=== PATIENT | female | born 1945 | race Caucasian/White ===

== ENCOUNTER 2020-04-11 06:35 | Inpatient (IN) | payer OTHER ==
[~2020-04-11] VITALS: Ht 167.6 cm; Wt 120.4 kg
[2020-04-11] MEDS ORDERED: SODIUM CHLORIDE 0.9% 1,000 ML IV ONE (08:00)
[2020-04-11 08:27] LABS: Basophils # (auto) 0 10 ^3/uL (0-0.2); Eosinophils # (auto) 0 10 ^3/uL (0-0.8); Monocytes # (auto) 0.5 10 ^3/uL (0-1.3); Neutrophils # (auto) 9.7 10 ^3/uL (1.6-8.6)
[2020-04-11 08:29] LABS: Basophils % (auto) 0.2 % (0.0-2.0); Hematocrit 33.4 % (36.0-46.0); Lymphocytes # (auto) 0.4 10 ^3/uL (0.4-5.4); Lymphocytes % (auto) 3.7 % (10.0-50.0); Mean Corpuscular Hemoglobin 33.8 pg (28.0-32.0); Mean Corpuscular Hgb Conc. 32.8 g/dL (32.0-36.0); Neutrophils % (auto) 91.1 % (37.0-80.0); Nucleated Red Blood Cells % 0.1 %; Platelet Count (auto) 87 10^3/uL (140-450); Red Blood Cells 3.25 10^6/uL (4.0-5.20); Red Cell Distribution Width 17.3 % (11.8-14.3); White Blood Cell 10.7 10^3/uL (4.4-10.8)
[2020-04-11 08:46] LABS: Albumin 2.7 g/dL (3.4-5.0); BUN/Creatinine Ratio 36.8; Calcium 8.6 mg/dL (8.5-10.1); Magnesium 1.3 mg/dL (1.6-2.6); Potassium 3.7 mmol/L (3.5-5.1)
[2020-04-11 08:49] LABS: Bilirubin, Total 2.3 mg/dL (0.2-1.0); Total Protein 5.1 g/dL (6.4-8.2)
[2020-04-11 08:50] LABS: INR 1.41 (0.9-1.15); Partial Thromboplastin Time 31.3 sec (23.0-31.2)
[2020-04-11] MEDS ORDERED: IOHEXOL 350 MG/ML 100ML IJ ONE ×2 (12:42→13:12)
[2020-04-11 14:17] LABS: Urine Bacteria NONE SEEN /hpf (None Seen); Urine Blood 2+ /uL (Negative); Urine Mucus FEW (None Seen); Urine Specific Gravity 1.031 (1.001-1.035); Urine WBC 10 /hpf (0 - 5)
[2020-04-11] MEDS ORDERED: SPIRONOLACTONE 25 MG TAB PO ONE (15:45)
[2020-04-11] MEDS ORDERED: cefTRIAXone 1GM/50ML D5W 50 ML IV ONE (15:45)
[2020-04-11] MEDS ORDERED: FUROSEMIDE 40 MG/4 ML VIAL IV ONE (15:45)
[2020-04-11] MEDS ORDERED: VANCOMYCIN PER PHARMACY 0 MG IV SCH (16:00)
[2020-04-11] MEDS ORDERED: MORPHINE SULF INJ 2 MG/ML SYRINGE 1ML IV PRN (16:00)
[2020-04-11] MEDS ORDERED: ACETAMINOPHEN 500 MG TAB PO PRN (16:00)
[2020-04-11] MEDS ORDERED: NITROGLYCERIN 0.4 MG SL TAB SL PRN (16:00)
[2020-04-11] MEDS ORDERED: LACTULOSE 20Gm/30ML SOLN PO PRN (16:30)
[2020-04-11] MEDS ORDERED: ALBUTEROL SULF 2.5 MG/0.5ML(0.5%) NEB SOLN NEB PRN (16:30)
[2020-04-11] MEDS ORDERED: AZITHROMYCIN 500MG/ 250ML 250 ML IV SCH ×2 (16:35→18:00)
[2020-04-11] MEDS ORDERED: PIPERACILLIN-TAZOB 3.375GM 100 ML IV ONE (16:45)
[2020-04-11] MEDS: POTASSIUM CHL 20 Meq TABLET PO SCH (16:55)
[2020-04-11 17:15] VITALS: BP 149/55
[2020-04-11] MEDS: MAGNESIUM SULFATE 1GM/100ML 100 ML IV SCH ×2 (17:50→17:51)
--- NOTE | 2020-04-11 18:10 | NUR ---
Telemetry admit from ER YURIY FAIR admitted to Telemetry unit after SBAR received. Patient oriented to Kelly Kelley, primary RN, unit, room, bed, and unit policies regarding patient care and visiting hours. Patient now on continuous telemetry monitoring, tele box # 3 and telemetry reading on arrival to unit is . Patient placed on bedside oxygen, weighed by bedscale and encouraged to call if they need something. All questions and concerns addressed, patient verbalized understanding. Note:
--- NOTE | 2020-04-11 18:15 | NUR ---
ASSESSMENT NOTE PT ARRIVED VIA GURNEY FROM ER, TO ROOM 236 A RULE OUT COVID, PT IS ALERT ORIENTED X4, OXYGEN 2 L NC, TALL AND BIG, LARGE SWOLLEN NOTED ON BOTH LEGS, LEFT LEG SKIN ERYTHEMA NOTED FROM LEFT GROIN TO MID THIGH, AND FROM BELOW KNEE TO THE FOOT, PT IS TENDER TO TOUCH ON BOTH LOWER EXTREMITIES, UNABLE TO BEND HER LEFT KNEE, LARGE SOFT ABDOMEN NOTED, ABLE TO VERBALIS HER NEEDS , PAIN 0/10, CALL LIGHT WITHIN REACH
[2020-04-11 18:33] LABS: CRP High Sensitivity 7.57 mg/dL (< 0.3)
[2020-04-11] MEDS: ALBUTEROL SULF 2.5 MG/0.5ML(0.5%) NEB SOLN NEB SCH ×2 (18:44→23:06)
[2020-04-11] MEDS: IPRATROPIUM BROM 0.5 MG/2.5ML INH SOL NEB SCH ×2 (18:44→23:07)
[2020-04-11] MEDS ORDERED: CYAN100056 PO (18:57)
[2020-04-11] MEDS ORDERED: OMEP20TA PO (18:57)
[2020-04-11] MEDS ORDERED: MULT-228 PO (18:57)
[2020-04-11] MEDS ORDERED: SPIR25TA8 PO (18:57)
[2020-04-11] MEDS ORDERED: ALLO300T2 PO (18:57)
[2020-04-11] MEDS ORDERED: ASPI-543 PO (18:57)
[2020-04-11] MEDS ORDERED: TRAM50TA2 PO (18:57)
[2020-04-11] MEDS ORDERED: METF-370 PO (18:57)
--- NOTE | 2020-04-11 18:58 | NUR ---
PT CONTINUE STABLE , CONTINUE CARE
--- NOTE | 2020-04-11 19:59 | NUR ---
Opening Shift Note Assumed care of patient, awake and alert. No S/S of distress/SOB or pain. Heck hanging below bed, draining to gravity. Instructed on POC and to call for assist PRN, will continue to monitor for changes Q1hr and PRN.
[2020-04-11 20:00] VITALS: BP 116/62
[2020-04-11] MEDS ORDERED: VANCOMYCIN 1GM/250ML 250 ML IV SCH (20:00)
--- NOTE | 2020-04-11 21:35 | NUR ---
Pharmacy Called pharmacy regarding late IV antibiotics medications administer. Pharmacy worker Amado said to follow the order of schedule medications and he will fix the times. Will continue as instructed.
[2020-04-11] MEDS: FAMOTIDINE 20 MG TAB PO SCH (21:46)
[2020-04-11] MEDS: CARVEDILOL 3.125 MG TAB PO SCH (21:46)
[2020-04-11] MEDS: SODIUM CHLOR 0.9% PF (SALINE LOCK) 10ML VIAL/SYR IV SCH (21:47)
[2020-04-11 22:00] VITALS: BP 116/62
[2020-04-11] MEDS: BUDESONIDE (INHALATION) 180 MCG IH IN SCH (22:00)
[2020-04-11] MEDS ORDERED: PIPERACILLIN-TAZOB 3.375GM 100 ML IV SCH (22:00)
[2020-04-11] MEDS: ALBUTEROL SULF HFA 90MCG INH 200DOSE IN SCH (22:00)
--- NOTE | 2020-04-11 22:10 | NUR ---
Pain Medication Page special technical operations officer hospitalist regarding patient need of pain medication, waiting for hospitalist to call back.
--- NOTE | 2020-04-11 22:50 | NUR ---
Pain Medication & Positive Blood Cultures environmental management specialist hospitalist made aware of patient's need for pain medication and positive blood cultures (gram + cocci in cluster). HAFSA Martel ordered Morphine 2mg IV q4hrs for pain 7-10. No new orders given for positive blood cultures, will continue to monitor.
[2020-04-11] MEDS: PIPERACILLIN-TAZOB 3.375GM 100 ML IV SCH (23:00)
[2020-04-11] MEDS: MORPHINE SULF INJ 2 MG/ML SYRINGE 1ML IV PRN (23:29)
--- NOTE | 2020-04-11 23:45 | NUR ---
Covid Swab Covid swab collected and walked down by this RN (Flori).
[2020-04-12 05:00] VITALS: BP 128/70
[2020-04-12] MEDS: PIPERACILLIN-TAZOB 3.375GM 100 ML IV SCH ×2 (05:24→11:29)
[2020-04-12] MEDS: SODIUM CHLOR 0.9% PF (SALINE LOCK) 10ML VIAL/SYR IV SCH ×3 (05:25→22:08)
[2020-04-12] MEDS: ALBUTEROL SULF HFA 90MCG INH 200DOSE IN SCH (06:00)
--- NOTE | 2020-04-12 07:30 | NUR ---
OPENING NOTES ASSUMED CARE OF PT. ALERT AND ORIENTED. NO S/S OF SOB/DISTRESS NOTED. BED SET TO LOWEST POSITION/LOCKED. BEDSIDE RAILS UP X2. CALL LIGHT WITHIN REACH. INSTRUCTED PT TO CESAR FOR ASSISTANCE. UPDATE ON POC. PT VERBALIZED UNDERSTANDING. WILL CONTINUE TO MONITOR Q1HR AND PRN.
[2020-04-12 07:58] LABS: Basophils # (auto) 0 10 ^3/uL (0-0.2); Eosinophils # (auto) 0 10 ^3/uL (0-0.8); Eosinophils % (auto) 0.4 % (0.0-7.0); Lymphocytes # (auto) 0.7 10 ^3/uL (0.4-5.4); Platelet Count (auto) 70 10^3/uL (140-450)
[2020-04-12 08:00] LABS: Basophils % (auto) 0.1 % (0.0-2.0); Hematocrit 31.5 % (36.0-46.0); Hemoglobin 10.4 g/dL (12.2-16.2); Lymphocytes % (auto) 8.6 % (10.0-50.0); Mean Corpuscular Hemoglobin 33.9 pg (28.0-32.0); Mean Corpuscular Hgb Conc. 32.9 g/dL (32.0-36.0); Mean Corpuscular Volume 103.1 fL (80.0-100.0); Monocytes # (auto) 0.5 10 ^3/uL (0-1.3); Neutrophils # (auto) 6.4 10 ^3/uL (1.6-8.6); Neutrophils % (auto) 83.9 % (37.0-80.0); Nucleated Red Blood Cells % 0.2 %; Red Blood Cells 3.05 10^6/uL (4.0-5.20); Red Cell Distribution Width 17.5 % (11.8-14.3); White Blood Cell 7.7 10^3/uL (4.4-10.8)
[2020-04-12 08:10] LABS: INR 1.43 (0.9-1.15); Partial Thromboplastin Time 35.4 sec (23.0-31.2)
[2020-04-12 08:16] LABS: Albumin 2.4 g/dL (3.4-5.0); Anion Gap 4 (5-15); Blood Urea Nitrogen 20 mg/dL (7-18); Calcium 7.9 mg/dL (8.5-10.1); Carbon Dioxide 30 mmol/L (21-32); Chloride 102 mmol/L (98-107); Glucose 119 mg/dL (74-106); Potassium 3.5 mmol/L (3.5-5.1); Sodium 136 mmol/L (136-145)
[2020-04-12 08:22] LABS: Alanine Aminotransferase 17 U/L (13-56); Alkaline Phosphatase 71 U/L (45-117); Aspartate Aminotransferase 30 U/L (15-37); BUN/Creatinine Ratio 38.5; Bilirubin, Total 1.4 mg/dL (0.2-1.0); Cholesterol 111 mg/dL (< 200); GFR African American 148 mL/min; GFR Non-African American 123 mL/min; HDL Cholesterol 20 mg/dL (40-59); LDL Cholesterol 71 mg/dL (< 100); Total Protein 4.6 g/dL (6.4-8.2); Triglycerides 104 mg/dL (< 150)
[2020-04-12 09:00] VITALS: BP 119/65
[2020-04-12] MEDS ORDERED: cefTRIAXone 1GM/50ML D5W 50 ML IV SCH (09:00)
[2020-04-12] MEDS: FUROSEMIDE 40 MG/4 ML VIAL IV SCH (09:28)
[2020-04-12] MEDS: POTASSIUM CHL 20 Meq TABLET PO SCH (09:29)
[2020-04-12] MEDS: FAMOTIDINE 20 MG TAB PO SCH ×2 (09:29→22:25)
[2020-04-12] MEDS: CARVEDILOL 3.125 MG TAB PO SCH ×3 (09:29→22:25)
[2020-04-12] MEDS ORDERED: ZINC SULFATE 220mg CAP or TAB PO SCH (10:00)
[2020-04-12] MEDS ORDERED: CHOLECALCIFEROL (VITD3) 2,000 UNIT CAP PO SCH (10:00)
[2020-04-12] MEDS ORDERED: ASCORBIC ACID 1,000 MG TAB PO SCH (10:00)
[2020-04-12] MEDS ORDERED: DexAMETHasone SOD PHOS 10MG/1ML VIAL INJ IV SCH (10:00)
[2020-04-12] MEDS: BUDESONIDE (INHALATION) 180 MCG IH IN SCH (10:00)
[2020-04-12] MEDS ORDERED: ENALAPRIL MALEATE 2.5 MG TAB PO SCH (10:00)
[2020-04-12] MEDS ORDERED: VANCOMYCIN 1GM/250ML 250 ML IV SCH (11:00)
[2020-04-12] MEDS: ALBUTEROL SULF 2.5 MG/0.5ML(0.5%) NEB SOLN NEB SCH ×2 (11:31→22:22)
[2020-04-12] MEDS: IPRATROPIUM BROM 0.5 MG/2.5ML INH SOL NEB SCH ×2 (11:31→22:22)
[2020-04-12 13:00] VITALS: BP 113/63
[2020-04-12] MEDS: MORPHINE SULF INJ 2 MG/ML SYRINGE 1ML IV PRN (13:46)
--- NOTE | 2020-04-12 14:44 | NUR ---
Nutrition Assessment/Consult Notes Please refer to link for full assessment notes. Est Energy needs: 7745-7632 kcals (12-15 kcal/kgBW) Est Protein needs: 118-148 gms/day (2.0-2.5 gm/kgIBW of 59 kg) Will continue to monitor and reassess prn. Addendum: 04/12/20 at [address] Amended: Links added.
[2020-04-12] MEDS ORDERED: ALBUMIN 25% 100 ML IV ONE (14:45)
--- NOTE | 2020-04-12 15:09 | NUR ---
REPORT GIVE TO MILI CHONG.
[2020-04-12] MEDS ORDERED: FUROSEMIDE 40 MG/4 ML VIAL IV ONE (15:45)
--- NOTE | 2020-04-12 16:00 | NUR ---
Patient transferred to unit in stable condition.
--- NOTE | 2020-04-12 16:00 | NUR ---
PATIENT TRANSFERRED TO ROOM 218 B VIA BED WITH ALL PERSONAL BELONGINGS. ON 2 L/NC. NO S/S OF SOB/DISTRESS NOTED.
--- NOTE | 2020-04-12 16:20 | NUR ---
Ordered medications given. Patient resting comfortably in bed with no distress noted. Patient stable.
--- NOTE | 2020-04-12 16:40 | NUR ---
Patient alert and oriented x4. Lungs clear with O2 at 2L. Respirations even and unlabored. Normal sinus rhythm per telemetry monitoring. Bruised on bilateral upper arms. 20 gauge peripheral IV in right forearm, infusing albumin. Abdomen soft and non-tender. Heck catheter with stat lock, draining clear, yellow urine. Bilateral lower extremities edematous; 2-3+ pitting edema. Patient denies any pain at this time. Patient stable.
[2020-04-12 17:00] VITALS: BP 119/61
--- NOTE | 2020-04-12 17:00 | NUR ---
WOUND CARE NOTE: WOUND CARE TO SEE PATIENT PER WOUND CARE REQUEST FOR LOW HARVEY SCORE. PATIENT ADMITTED TO [facility] FOR HEART FAILURE AND PNEUMONIA. BEDSIDE NURSE NOTED LOW HARVEY SCORE UPON ADMISSION. PATIENT HARVEY SCORE IS 12. PATIENT HAS NO OPEN WOUNDS. ZGUARD AND OPTIFOAM GENTLE SACRAL DRESSING APPLIED PREVENTATIVE. RECOMMEND: FREQUENT Q2HOUR REPOSITIONING CONDITION PERMITS. REDISTRIBUTE PRESSURE UTILIZING PILLOWS AND WEDGES. DIETARY CONSULT. DAILY/PRN DRESSING CHANGE TO SACRUM. SKIN/WOUND CARE PLAN. CONTINUED MONITORING BY WOUND CARE TEAM.
--- NOTE | 2020-04-12 18:45 | NUR ---
Patient eating dinner; denies any pain at this time. Patient stable since transfer to unit.
[2020-04-12 22:24] VITALS: BP 111/48
[2020-04-13 05:46] VITALS: BP 117/57
[2020-04-13 06:00] LABS: Basophils # (auto) 0 10 ^3/uL (0-0.2); Eosinophils # (auto) 0 10 ^3/uL (0-0.8); Platelet Count (auto) 74 10^3/uL (140-450); White Blood Cell 5.9 10^3/uL (4.4-10.8)
[2020-04-13] MEDS: SODIUM CHLOR 0.9% PF (SALINE LOCK) 10ML VIAL/SYR IV SCH ×3 (06:00→21:57)
[2020-04-13 06:03] LABS: Hematocrit 30.5 % (36.0-46.0); Hemoglobin 10.1 g/dL (12.2-16.2); Lymphocytes # (auto) 0.4 10 ^3/uL (0.4-5.4); Lymphocytes % (auto) 7.3 % (10.0-50.0); Mean Corpuscular Hemoglobin 34.2 pg (28.0-32.0); Mean Corpuscular Volume 103.6 fL (80.0-100.0); Monocytes # (auto) 0.5 10 ^3/uL (0-1.3); Monocytes % (auto) 8.8 % (0.0-12.0); Neutrophils # (auto) 4.9 10 ^3/uL (1.6-8.6); Neutrophils % (auto) 83.9 % (37.0-80.0); Red Blood Cells 2.94 10^6/uL (4.0-5.20); Red Cell Distribution Width 17.2 % (11.8-14.3)
[2020-04-13 06:21] LABS: Calcium 8.4 mg/dL (8.5-10.1)
[2020-04-13 06:27] LABS: Albumin 2.6 g/dL (3.4-5.0); BUN/Creatinine Ratio 41.2; Bilirubin, Total 0.8 mg/dL (0.2-1.0); Total Protein 4.9 g/dL (6.4-8.2)
[2020-04-13] MEDS: IPRATROPIUM BROM 0.5 MG/2.5ML INH SOL NEB SCH ×3 (07:01→23:30)
[2020-04-13] MEDS: ALBUTEROL SULF 2.5 MG/0.5ML(0.5%) NEB SOLN NEB SCH ×3 (07:01→23:30)
--- NOTE | 2020-04-13 08:00 | NUR ---
Opening Shift Note Assumed care of patient, awake, alert and oriented X4. No S/S of distress/SOB or pain. Tele# 35, sinus rhythm @ 78 bpm. IV to right forearm, 20 gauge, patent and saline locked. Bilateral lower extremity +3 pitting edema with redness and scaly, left worse than the right. Instructed on POC and to call for assist PRN, verbalized understanding. Bed locked, in lowest position, call light within reach, will continue to monitor for changes Q1hr and PRN.
[2020-04-13 09:00] VITALS: BP 124/65
--- NOTE | 2020-04-13 10:15 | NUR ---
ROUNDS Dr Candelaria at bedside for rounds, new orders received and followed through. Patient updated on plan of care, verbalized understanding.
[2020-04-13] MEDS: FAMOTIDINE 20 MG TAB PO SCH ×2 (10:28→21:57)
[2020-04-13] MEDS: POTASSIUM CHL 20 Meq TABLET PO SCH (10:31)
[2020-04-13] MEDS: FUROSEMIDE 40 MG/4 ML VIAL IV SCH ×2 (10:32→17:43)
[2020-04-13] MEDS: levoFLOXacin 750MG 150 ML IV SCH (10:37)
--- NOTE | 2020-04-13 11:30 | NUR ---
UDS Urine specimen collected and sent to lab per order.
--- NOTE | 2020-04-13 12:30 | NUR ---
IV removal IV DC'd with sterile technique to right forearm due to leaking, catheter fully intact. Pressure dressing applied to site. Patient tolerated procedure well. Discharged with aftercare instructions per MD. IV insertion IV access obtained, via clean sterile technique by inserting 22 gauge to the right forearm after 1 attempt. IV secured properly. No trauma to site. Patient tolerated well.
[2020-04-13 12:51] LABS: Alcohol, Urine < 3.0 mg/dL (0-10); Amphetamine Screen, Urine NEGATIVE (NEGATIVE); Barbiturate Scree,Urine NEGATIVE (NEGATIVE); Benzodiazephine Screen, Urine NEGATIVE (NEGATIVE); Cannabinoid Screen, Urine NEGATIVE (NEGATIVE); Cocaine Screen, Urine NEGATIVE (NEGATIVE); Opiate Scree,Urine NEGATIVE (NEGATIVE); Phencyclidine Screen, Urine NEGATIVE (NEGATIVE)
[2020-04-13 13:00] VITALS: BP_SYST 117; BP_SYST 136; BP_DIAS 47; BP_DIAS 63
[2020-04-13] MEDS ORDERED: POTASSIUM CHL 20 Meq TABLET PO ONE (14:00)
[2020-04-13] MEDS ORDERED: metOLazone 5 MG TAB PO ONE (14:00)
--- NOTE | 2020-04-13 15:40 | NUR ---
Patient brought to [place] per bed on lunchroom monitor and portable O2 @ 2L per NC. Baseline VS 122/71 HR 83 RR 24 SAO2 93% on 2L O2. Completion VS 120/83 -81-24-93% Patient underwent left side thoracentesis - 550ml straw colored liq obtained - procedure stopped due to patient c/o back pain without SOB noted. Occlusive dressing applied to site. Patient states no further pain after thoracentesis completed. Patient returned to room in stable condition.
--- NOTE | 2020-04-13 15:58 | NUR ---
THORACENTESIS Patient returned from radiology, S/P left Thoracentesis, no distress noted upon return.
--- NOTE | 2020-04-13 16:50 | NUR ---
Spoke to Dr Candelaria re: thoracentesis fluid obtained - orders received - and thoracentesis fluid taken to lab per orders.
[2020-04-13 17:00] VITALS: BP 124/60
[2020-04-13] MEDS: HYDROcodone-ACET 5/325MG TAB PO PRN ×2 (17:04→22:02)
--- NOTE | 2020-04-13 19:08 | NUR ---
Care endorsed to MILI Pham,night nurse.
[2020-04-13] MEDS: CARVEDILOL 3.125 MG TAB PO SCH (21:47)
[2020-04-13 22:00] VITALS: BP 117/56
[2020-04-14 05:58] VITALS: BP 133/67
[2020-04-14] MEDS: FUROSEMIDE 40 MG/4 ML VIAL IV SCH ×2 (06:04→17:45)
[2020-04-14] MEDS: SODIUM CHLOR 0.9% PF (SALINE LOCK) 10ML VIAL/SYR IV SCH ×3 (06:10→22:53)
[2020-04-14] MEDS: ALBUTEROL SULF 2.5 MG/0.5ML(0.5%) NEB SOLN NEB SCH ×3 (06:40→21:17)
[2020-04-14] MEDS: IPRATROPIUM BROM 0.5 MG/2.5ML INH SOL NEB SCH ×3 (06:40→21:17)
--- NOTE | 2020-04-14 08:00 | NUR ---
Opening Shift Note Assumed care of patient, awake, alert and oriented X1, to self, forgets where shes at and what brought her here, easily re-oriented. No S/S of distress/SOB or pain. Tele# 35, sinus rhythm @ 95 bpm. IV to right forearm, 22 gauge, patent and saline locked. Bilateral lower extremity +3 pitting edema with redness and scaly, left worse than the right. Instructed on POC and to call for assist PRN, verbalized understanding. Bed locked, in lowest position, call light within reach, will continue to monitor for changes Q1hr and PRN
[2020-04-14 09:00] VITALS: BP 122/65
[2020-04-14] MEDS: levoFLOXacin 750MG 150 ML IV SCH (10:23)
[2020-04-14] MEDS: POTASSIUM CHL 20 Meq TABLET PO SCH (10:24)
[2020-04-14] MEDS: CARVEDILOL 3.125 MG TAB PO SCH ×2 (10:24→22:00)
[2020-04-14] MEDS: FAMOTIDINE 20 MG TAB PO SCH ×2 (10:24→22:00)
[2020-04-14] MEDS ORDERED: ALBUMIN 25% 100 ML IV ONE (11:30)
--- NOTE | 2020-04-14 11:30 | NUR ---
ROUNDS Dr Candelaria at bedside for rounds, new orders received and followed through. Patient updated on plan of care, verbalized understanding.
[2020-04-14] MEDS ORDERED: metOLazone 5 MG TAB PO ONE (12:00)
--- NOTE | 2020-04-14 12:50 | NUR ---
IV removal IV DC'd with sterile technique to right forearm due to swelling and redness, catheter fully intact,ice pack applied. Pressure dressing applied to site. Patient tolerated procedure well. Discharged with aftercare instructions per MD. IV insertion IV access obtained, via clean sterile technique by inserting 20 gauge catheter to the left forearm after 1 attempt. IV secured properly. No trauma to site. Patient tolerated well.
[2020-04-14 13:00] VITALS: BP 139/52
[2020-04-14] MEDS ORDERED: POTASSIUM CHL 20 Meq TABLET PO ONE (13:00)
[2020-04-14] MEDS: HYDROcodone-ACET 5/325MG TAB PO PRN (14:25)
[2020-04-14 17:00] VITALS: BP 110/49
--- NOTE | 2020-04-14 18:59 | NUR ---
Care endorsed to MILI Carney,night nurse.
--- NOTE | 2020-04-14 19:45 | NUR ---
Opening Shift Note Assumed care of patient, awake and alert. No S/S of distress/SOB or pain. Safety measures maintained by keeping the bed locked in lowest position, 2 side rails up, personal items and jazmin light within reach. Instructed on POC and to call for assist PRN, will continue to monitor for changes Q1hr and PRN.
[2020-04-14 21:18] VITALS: BP 110/49
[2020-04-14 21:57] VITALS: BP 122/75
--- NOTE | 2020-04-14 23:30 | NUR ---
Patient changed rooms from 218B to 217A Patient agitated, wanting to get out of bed, and pulling on her mcmahon catheter. Patient is now in a sitter room.
[2020-04-15] MEDS: HYDROcodone-ACET 5/325MG TAB PO PRN ×2 (02:36→11:58)
[2020-04-15 05:09] VITALS: BP 131/74
[2020-04-15] MEDS: SODIUM CHLOR 0.9% PF (SALINE LOCK) 10ML VIAL/SYR IV SCH ×3 (05:57→22:19)
[2020-04-15] MEDS: FUROSEMIDE 40 MG/4 ML VIAL IV SCH ×2 (06:00→17:41)
[2020-04-15] MEDS: IPRATROPIUM BROM 0.5 MG/2.5ML INH SOL NEB SCH ×3 (06:30→21:37)
[2020-04-15] MEDS: ALBUTEROL SULF 2.5 MG/0.5ML(0.5%) NEB SOLN NEB SCH ×3 (06:30→21:37)
[2020-04-15 07:05] LABS: Potassium 3.6 mmol/L (3.5-5.1)
[2020-04-15 07:08] LABS: BUN/Creatinine Ratio 36.2; Calcium 9.5 mg/dL (8.5-10.1)
[2020-04-15 09:00] VITALS: BP 122/54
[2020-04-15 09:01] LABS: Hepatitis B Surface Antibody Negative
[2020-04-15] MEDS: FAMOTIDINE 20 MG TAB PO SCH ×2 (10:00→22:19)
[2020-04-15] MEDS: POTASSIUM CHL 20 Meq TABLET PO SCH ×2 (10:03→22:20)
[2020-04-15] MEDS: CARVEDILOL 3.125 MG TAB PO SCH ×2 (10:04→22:20)
[2020-04-15] MEDS: levoFLOXacin 750MG 150 ML IV SCH (10:04)
[2020-04-15 10:10] LABS: Hepatitis B Core Total AB Negative; Hepatitis B Surface Antigen Negative (Negative)
[2020-04-15 10:11] LABS: Hepatitis C Antibody Negative (Negative)
--- NOTE | 2020-04-15 10:30 | NUR ---
c/o itchiness Stopping Levaquin IV at this time. Patient c/o itchiness to IV site. IV flushed. Patient not reporting any other symptoms at this time. Paging MD to notify.
[2020-04-15] MEDS ORDERED: PROPRANOLOL HCL 20 MG TAB PO ONE (10:45)
--- NOTE | 2020-04-15 11:32 | NUR ---
Spoke to MD Spoke to Dr. Candelaria in regards to patient's report of itchiness. MD to input orders. Benadryl PRN to be added.
[2020-04-15] MEDS ORDERED: diphenhdrAMINE HCL 50 MG/1 ML VL IV PRN (11:45)
[2020-04-15 13:00] VITALS: BP 112/57
[2020-04-15] MEDS ORDERED: metOLazone 5 MG TAB PO ONE (14:00)
--- NOTE | 2020-04-15 14:22 | NUR ---
Nutrition Followup Note Wt 124kg Pt is s/p removal of 9 liters of fluid per MD note. Pt is on a 2g Na diet. Pt appetite appears to have improved from initial assessment. Pt appetite appears to be good aeb pt with 90% po intake x 2 days per RN note. Est Energy needs: 0571-2568 kcals (12-15 kcal/kgBW) Est Protein needs: 118-148 gms/day (2.0-2.5 gm/kgIBW of 59 kg) Will continue to monitor and reassess prn. Labs: CO2 40H, BUN 21H, GLUC 129H, Alb 2.6L BM: Pt with no BM noted per Rn note Skin: BS 15 mod risk, full details in healthcare business analyst note PES Resolved: 1) Inadequate oral intake r/t pt with a poor appetite aeb 15% PO intake 2) Altered nutrition related lab values r/t current medical condition aeb hyperglycemia, hypocalcemia, mod hypoalbuminemia Comments Will continue to monitor PO status, skin status, pertinent labs and weight trends. Will f/u in 3-5 days. 1) Continue to carefully monitor pt PO intake to meet at least 75% of meals 2) Suggest a FRPH70r/2gm Sodium diet 3) Continue current plan of care Expected Outcomes/Goals: Pt appetite to improve Pt labs to improve
[2020-04-15] MEDS: MORPHINE SULF INJ 2 MG/ML SYRINGE 1ML IV PRN (14:24)
[2020-04-15] MEDS ORDERED: POTASSIUM CHL 20 Meq TABLET PO ONE (15:00)
--- NOTE | 2020-04-15 16:24 | NUR ---
Spoke to MD Orders received to DC Morphine. New orders obtained for pain management. Orders read back to verify. Will implement and carry out.
[2020-04-15] MEDS ORDERED: traMADol HCL 50 MG TAB PO PRN (16:30)
[2020-04-15 17:00] VITALS: BP 122/53
--- NOTE | 2020-04-15 19:45 | NUR ---
Opening Shift Note Assumed care of patient, awake and alert. No S/S of distress/SOB or pain. Safety measures maintained by keeping the bed locked in lowest position, 2 side rails up, personal items and call light within reach. Sitter at bed side. Instructed on POC and to call for assist PRN, will continue to monitor for changes Q1hr and PRN.
--- NOTE | 2020-04-15 21:40 | NUR ---
RT NOTE PT WAS SEEN BY RT FOR HHN TX. PT TOLERATES WELL VIA MASK. NO ADVERSE REACTION NOTED. CONT ORDERED Addendum: 04/15/20 at 2147 by Aimee Whitlock RT Amended: Links added.
[2020-04-15 22:00] VITALS: BP 138/65
[2020-04-15] MEDS: PROPRANOLOL HCL 20 MG TAB PO SCH (22:19)
[2020-04-16] MEDS: HYDROcodone-ACET 5/325MG TAB PO PRN (04:18)
[2020-04-16 05:00] VITALS: BP 122/38
[2020-04-16] MEDS: FUROSEMIDE 40 MG/4 ML VIAL IV SCH ×2 (06:01→18:00)
[2020-04-16] MEDS: SODIUM CHLOR 0.9% PF (SALINE LOCK) 10ML VIAL/SYR IV SCH ×2 (06:01→18:11)
[2020-04-16 06:29] LABS: Calcium 9.5 mg/dL (8.5-10.1); Potassium 3.6 mmol/L (3.5-5.1)
[2020-04-16 06:35] LABS: Albumin 2.7 g/dL (3.4-5.0); BUN/Creatinine Ratio 43.1; Bilirubin, Total 1.2 mg/dL (0.2-1.0); Total Protein 4.9 g/dL (6.4-8.2)
--- NOTE | 2020-04-16 06:45 | NUR ---
Paged Hospitalist Critical lab value CO2 of 41.
--- NOTE | 2020-04-16 06:49 | NUR ---
Call back from Hospitalist No new orders.
[2020-04-16] MEDS: ALBUTEROL SULF 2.5 MG/0.5ML(0.5%) NEB SOLN NEB SCH ×2 (06:54→13:20)
[2020-04-16] MEDS: IPRATROPIUM BROM 0.5 MG/2.5ML INH SOL NEB SCH ×2 (06:54→13:20)
--- NOTE | 2020-04-16 07:20 | NUR ---
Opening Shift Note Assumed care of patient, patient is resting with eyes closed. Respirations are even and unlabored. No S/S of distress/SOB or pain. Bed is low, locked with 2x side rails up. Call light is within reach. Will instruct on POC. Will continue to monitor for changes Q1hr and PRN.
[2020-04-16 09:00] VITALS: BP 110/42
[2020-04-16] MEDS: FAMOTIDINE 20 MG TAB PO SCH (09:48)
[2020-04-16] MEDS: POTASSIUM CHL 20 Meq TABLET PO SCH (09:49)
[2020-04-16] MEDS: PROPRANOLOL HCL 20 MG TAB PO SCH (09:50)
[2020-04-16] MEDS: CARVEDILOL 3.125 MG TAB PO SCH (10:00)
[2020-04-16] MEDS ORDERED: CEPH-37 PO (10:16)
[2020-04-16] MEDS ORDERED: FURO40TA4 PO (10:16)
[2020-04-16] MEDS ORDERED: POTA-220 PO (10:16)
[2020-04-16] MEDS ORDERED: LACT10SO3 PO (10:16)
[2020-04-16] MEDS ORDERED: PROP20TA73 PO (10:16)
--- NOTE | 2020-04-16 11:41 | NUR ---
assessment re: ss consult dc planning Patient is a 74 year old female who is confused Per patients son Tutu prior to admission patient lived home with family and functioned with family assistance. Patient will return home on discharge and Tutu will transport her home. Patients PCP is Dr Marrero in [place]. Per Tutu he does not want to change PCP. Patient has a fww, wheelchair, and cane for home use. Patient has an advanced directive and POA who is Tutu. Patient has good family support. Patient has no post discharge needs identified at this time. Tutu verbalized understanding and agreed to discharge plan home. Addendum: 04/16/20 at 1222 by Samira CHOUDHARY Amended: Links added.
--- NOTE | 2020-04-16 12:18 | NUR ---
ABG Spoke to MD regarding ABG results. MD to input orders for home O2.
--- NOTE | 2020-04-16 12:25 | NUR ---
re-assessment Patients ABG PO2 is 45.3. Patient will need home oxygen on discharge. Addendum: 04/16/20 at 1226 by Samira CHOUDHARY Amended: Links added.
[2020-04-16 13:00] VITALS: BP 110/45
--- NOTE | 2020-04-16 13:07 | NUR ---
I faxed home oxygen order/ABG result to [facility]-asking for list of contracted vendors as well as authorization.
--- NOTE | 2020-04-16 13:12 | NUR ---
I called [facility] [phone] and spoke with Ritu, she said they will work on the home oxygen order and have a portable tank delivered here to the hospital. Person to contact for follow up is her coordinator Dina [phone].
--- NOTE | 2020-04-16 14:20 | NUR ---
I received a message from Dina at [facility] letting me know that the home oxygen has been ordered from -no ETA yet-they are still processing the order.
--- NOTE | 2020-04-16 15:27 | NUR ---
I called [facility] coordinator Dina [phone] and left message asking for ETA on home oxygen.
--- NOTE | 2020-04-16 16:59 | NUR ---
I called [facility] [phone] and spoke with Priti to request an ETA for home oxygen, she said it should be here within 2 hours-I made nurse Columba aware.
[2020-04-16 17:00] VITALS: BP 111/66
[2020-04-16 17:45] VITALS: BP 111/66
--- NOTE | 2020-04-16 18:54 | NUR ---
Discharge instructions given as ordered. Provided discharge instructions to uTtu (son). Advised him that medications were ready at [facility] in [place]. Encourage to follow up with PMD as instructed. Per Tutu, they have scheduled a follow up appt with PCP already. All questions and concerns addressed. IV removed with catheter intact, pressure dressing applied, mcmahon catheter removed. Telemetry unit returned to ICU. Patient taken to vehicle via wheelchair with all personal belongings, including oxygen and supplies that were delivered by [employer]. No distress noted at time of departure,patient had portable O2 set at 2L via nasal cannula.
== END 2020-04-16 18:57 | disposition home or self-care (01) | DRG 432 ==
LOC: EDBD 06:35 → ER 06:35 → TELE-EAST 06:36 → TELE-CENTR 18:10
PROVIDERS: ADMIT Internal Medicine; ATTEND Internal Medicine
PROC: 0W9B3ZZ Drainage of Left Pleural Cavity, Percutaneous Approach (ICD-10-PCS; principal; 2020-04-13)
DX: K74.60 Unspecified cirrhosis of liver (principal); J96.00 Acute respiratory failure, unspecified whether with hypoxia or hypercapnia; J91.8 Pleural effusion in other conditions classified elsewhere; L03.116 Cellulitis of left lower limb; L03.311 Cellulitis of abdominal wall; E44.0 Moderate protein-calorie malnutrition; D68.9 Coagulation defect, unspecified; K76.6 Portal hypertension; Z68.42 Body mass index [BMI] 45.0-49.9, adult; R18.8 Other ascites; Z20.828 Contact with and (suspected) exposure to other viral communicable diseases; I27.20 Pulmonary hypertension, unspecified; I11.0 Hypertensive heart disease with heart failure; I50.9 Heart failure, unspecified; D64.9 Anemia, unspecified; K42.9 Umbilical hernia without obstruction or gangrene; E11.9 Type 2 diabetes mellitus without complications; E83.42 Hypomagnesemia; E66.01 Morbid (severe) obesity due to excess calories; K80.20 Calculus of gallbladder without cholecystitis without obstruction; I87.2 Venous insufficiency (chronic) (peripheral); E78.5 Hyperlipidemia, unspecified; D69.6 Thrombocytopenia, unspecified; K76.0 Fatty (change of) liver, not elsewhere classified; Z88.5 Allergy status to narcotic agent; Z90.710 Acquired absence of both cervix and uterus
CPT/HCPCS: 10022; 36415; 36600; 71045; 71260; 74177; 76604; 76705; 76942; 80048; 80053; 80061; 80307; 81001; 82040; 82150; 82550; 82728; 82805; 83605; 83690; 83735; 83880; 84443; 84484; 85025; 85379; 85610; 85652; 85730; 86141; 86704; 86706; 86803; 87040; 87070; 87086; 87205; 87340; 87426; 87804; 93005; 93306; 93971; 94640; 96361; 96365; 96375; G0378; J0696; J1100; J1956; J2543; P9047